=== PATIENT | male | born 1975 | race Caucasian/White ===

== ENCOUNTER 2022-12-12 10:11 | Outpatient (CLI) | payer OTHER, SELFPAY | END 2022-12-12 10:12 | disposition home or self-care (01) | PROVIDERS: PCP Physician Assistant Medical; Visit Provider Family Medicine | DX: Z00.00 Encounter for general adult medical examination without abnormal findings (principal); E78.00 Pure hypercholesterolemia, unspecified; E66.9 Obesity, unspecified; R73.03 Prediabetes; Z11.59 Encounter for screening for other viral diseases; Z13.6 Encounter for screening for cardiovascular disorders | CPT/HCPCS: 80053; 80061; 86803 ==

== ENCOUNTER 2022-12-13 06:18 | Day surgery (SDC) | payer OTHER, SELFPAY ==
[2022-12-13] VITALS (8 sets, daily range): BP systolic 118–132; BP diastolic 78–91; PULSE 65–75; RESP 15–20; TEMP 36.4–36.7; O2SAT 95–98; BMI 45.3
[2022-12-13] MEDS: ETHYL CHLORIDE 1 APPLICATION 1 APPLIC TOPICAL (07:08)
[2022-12-13] MEDS: BUPIVACAINE 0.5% 30 ML INJECTION (07:08)
--- NOTE | 2022-12-13 07:50 | PM.ORPRC ---
Procedure Note Date of procedure: 12/13/22 Procedure: PREOPERATIVE DIAGNOSIS: 1. Right carpal tunnel syndrome POSTOPERATIVE DIAGNOSIS: 1. Right carpal tunnel syndrome PROCEDURE: 1. Right open carpal tunnel release SURGEON: Mike Kiser MD. STRATEGIC ADVISOR: KELSEA Gann ANESTHESIA: Local anesthetic (50:50 mixture of 1% lidocaine with epi and 0.5% marcaine plain) - 10ml total IMPLANTS: None EBL: 2 mL TOURNIQUET: None COMPLICATIONS: None evident INDICATIONS: The patient is a pleasant 47-year-old male who has experienced right hand numbess/tingling affecting the radial 3.5 digits for multiple months. It has progressively gotten worse. Nonoperative management has been tried and failed, and therefore surgery was recommended. DESCRIPTION OF PROCEDURE: Following a thorough discussion of risks, benefits, and alternatives consent was obtained and the operative extremity was marked. The patient was brought to the operating room and placed supine on the operating table. Local anesthesia induction was undertaken in preop holding. No antibiotics were administered as this was planned to be a local case only. Proper time-out was performed identifying proper patient, site, and procedure. The operative extremity was prepped and draped in the appropriate sterile fashion using ChloraPrep. An incision was made in line with the radial border of the ring finger beginning 1 cm distal to the distal wrist crease and progressing for another 2.5cm distal. Caution was taken to stay proximal to Padilla's cardinal line. Sharp incision through the skin, subcutaneous tissue, and palmar fascia was performed. The thenar musculature was bluntly elevated off the transverse carpal ligament. The ligament was directly visualized, and divided sharply with a 15 blade. This was released from its most proximal to the most distal extent. Metzenbaum scissor was also utilized to release the fascia extension proximally. We confirmed complete release of the transverse carpal ligament. Closure was performed with 4-O nylon in interrupted fashion. Soft dressings were applied, and the patient was transferred to the recovery room in stable condition. PLAN: 1. Encourage elevation of the operative extremity. 2. Range of motion of the fingers and hand/wrist as tolerated. 3. Ibuprofen/acetaminophen and/or Percocet as needed for pain control. 4. Follow up with PA visit or nurse visit in 12-16 days for wound check and suture removal.
== END 2022-12-13 08:15 | disposition home or self-care (01) ==
PROVIDERS: PCP Physician Assistant Medical; Visit Provider Orthopaedic Surgery Sports Medicine
PROC: (CPT 64721; principal; 2022-12-13 07:30)
DX: G56.01 Carpal tunnel syndrome, right upper limb (principal)
CPT/HCPCS: 64721; J3490

== ENCOUNTER 2023-01-29 06:18 | Day surgery (SDC) | payer OTHER, SELFPAY ==
[2023-01-29] VITALS (8 sets, daily range): BP systolic 125–132; BP diastolic 76–86; PULSE 66–73; RESP 16; TEMP 36.4–36.6; O2SAT 96–98; BMI 43.6
--- NOTE | 2023-01-29 07:13 | SUR.PREOP ---
SAME DAY SURGERY LOCAL INJECTION SITE VERIFICATION WAS PERFORMED BY SURGEON/PA AND PATIENT PRIOR TO LOCAL ANESTHETIC BEING INJECTED TO OPERATIVE SITE. Left hand
[2023-01-29] MEDS: BUPIVACAINE 0.5% 30 ML INJECTION (07:16)
[2023-01-29] MEDS: ETHYL CHLORIDE 1 APPLICATION 1 APPLIC TOPICAL (07:22)
--- NOTE | 2023-01-29 08:15 | SUR.PHASEII ---
Pt returned from OR and sat in recliner chair. Pt tolerated water, did not care for food. Pt verbalized readiness to be discharged and understanding of discharge instructions.
--- NOTE | 2023-01-29 08:33 | P.ORPRC_ITS ---
Procedure Note Date of procedure: 01/29/23 Procedure: PREOPERATIVE DIAGNOSIS: 1. Left carpal tunnel syndrome 2. Left thumb flexor tenosynovitis - trigger thumb POSTOPERATIVE DIAGNOSIS: 1. Left carpal tunnel syndrome 2. Left thumb flexor tenosynovitis - trigger thumb PROCEDURE: 1. Left open carpal tunnel release 2. Left thumb flexor tendon sheath open release (A1 brandy) SURGEON: Mike Kiser MD. NURSE MIDWIFE/CLINICAL INSTRUCTOR: Sundeep La PA-C ANESTHESIA: Local anesthetic 10ml via 50:50 mixture of 1% Lidocaine with epi and 0.5% marcaine plain EBL: 2ml IMPLANTS: None TOURNIQUET: None COMPLICATIONS: None evident INDICATIONS: The patient is a pleasant 47-year-old male who has experienced left hand numbness and tingling in the radial 3.5 digits as well as left thumb catching/triggering for number of months. It has progressively gotten worse. Given the failure of nonoperative management, and how this affects daily life, surgery was recommended. DESCRIPTION OF PROCEDURE: Following a thorough discussion of risks, benefits, and alternatives consent was obtained and the operative digit(s) was marked. The patient was brought to the operating room and placed supine on the operating table. Local anesthesia induction was undertaken in preop holding. No antibiotics were administered as this was planned to be a local case only. Proper time-out was performed identifying proper patient, site, and procedure. The operative extremity was prepped and draped in the appropriate sterile fashion using ChloraPrep. An incision was made in line with the radial border of the ring finger beginning 1 cm distal to the distal wrist crease and progressing for another 2.5cm distal. Caution was taken to stay proximal to Padilla's cardinal line. Sharp incision through the skin, subcutaneous tissue, and palmar fascia was performed. The thenar musculature was bluntly elevated off the transverse carpal ligament. The ligament was directly visualized, and divided sharply with a 15 blade. This was released from its most proximal to the most distal extent. Metzenbaum scissor was also utilized to release the fascia extension proximally. We confirmed complete release of the transverse carpal ligament. Thereafter, an incision was made on the palmar surface of the hand overlying the MCP joint region of the appropriate digit(s) respecting the palmar creases being cautious not to cross these perpendicularly. Sharp incision through the skin, and blunt dissection through subcutaneous tissue allowing protection of crossing neurologic structures. The A1 brandy was visualized directly. It was incised sharply with a 15 blade. It was released completely from its distal to proximal extent under direct visualization. The tendon was inspected and found to be mildly striated consistent with some friction. Otherwise, it was intact. The tendon was removed out of the wound, and further inspected. The patient was asked to manually flex and extend the digits and showed no further catching. The catching which was visualized after tourniquet inflation, was no longer evident with reproduction of a manual fist and relaxation. Closure was performed with 4-O nylon in interrupted fashion. Soft dressings were applied, and the patient was transferred to the recovery room in stable condition. PLAN: 1. Encourage elevation of the operative extremity. 2. Range of motion and icing of the fingers and hand/wrist as tolerated/needed. 3. Ibuprofen/acetaminophen as needed for pain control. 4. Follow up with PA visit in 12-16 days for wound check and suture removal.
== END 2023-01-29 08:12 | disposition home or self-care (01) ==
PROVIDERS: PCP Family Medicine; Visit Provider Orthopaedic Surgery Sports Medicine
PROC: (CPT 64721; principal; 2023-01-29 07:30)
DX: G56.02 Carpal tunnel syndrome, left upper limb (principal); M65.312 Trigger thumb, left thumb; M65.842 Other synovitis and tenosynovitis, left hand
CPT/HCPCS: 64721; 26055; J3490

== ENCOUNTER 2023-05-01 12:43 | Outpatient (CLI) | payer OTHER, SELFPAY | END 2023-05-01 12:44 | disposition home or self-care (01) | LOC: NFLDREF 05-02 07:37 | PROVIDERS: PCP Family Medicine; Referring Provider Family Medicine; Visit Provider Family Medicine | DX: B35.1 Tinea unguium (principal) | CPT/HCPCS: 80053 ==

== ENCOUNTER 2023-06-26 19:29 | Outpatient (CLI) | payer OTHER, SELFPAY ==
--- NOTE | 2023-07-03 09:03 | W.PM.SLEEP ---
Sleep Study Details Details Interpreting Provider: Sheba Date of Sleep Study: 06/26/23 Sleep Study Details: STUDY TYPE:? Home unattended ? BMI:? 43.8 ORDERING PROVIDER:Klever Galvin INDICATION:? Concerns about sleep apnea ? SLEEP SUMMARY:? 294 minutes monitor RESPIRATORY SUMMARY:? AHI 31.2, supine 29, left lateral 41, right lateral 15.6 Low oxygen 81 7.1% of study oxygen less than 90% Snoring 66.8% PERIODIC LIMB MOVEMENTS OF SLEEP:? Not recorded during home study CARDIAC:? Range 52-89 beats per minute, mean 69.1 beats per minute IMPRESSION:? Severe obstructive sleep apnea RECOMMENDATION: Treatment options include CPAP AutoSet 4-17, dental appliance is possible, weight loss is recommended.
== END 2023-06-26 19:30 | disposition home or self-care (01) ==
LOC: SLEEP 19:30
PROVIDERS: PCP Family Medicine; Visit Provider Family Medicine
DX: G47.33 Obstructive sleep apnea (adult) (pediatric) (principal)
CPT/HCPCS: 80053; 95806

== ENCOUNTER 2023-09-10 08:53 | Outpatient (CLI) | payer OTHER, SELFPAY | END 2023-09-10 08:54 | disposition home or self-care (01) | LOC: NFLDREF 09-11 19:32 | PROVIDERS: PCP Family Medicine; Referring Provider Family Medicine; Visit Provider Family Medicine | DX: B35.1 Tinea unguium (principal); Z79.899 Other long term (current) drug therapy | CPT/HCPCS: 80053 ==

== ENCOUNTER 2024-05-15 07:25 | Outpatient (CLI) | payer OTHER, SELFPAY ==
[2024-05-15 16:35] LABS: Chlamydia DNA Amplified* NOT DETECTED (No Detected); GC DNA Amplified* NOT DETECTED (No Detected)
== END 2024-05-15 07:26 | disposition home or self-care (01) ==
PROVIDERS: PCP Family Medicine; Visit Provider Family Medicine
DX: Z00.00 Encounter for general adult medical examination without abnormal findings (principal); E78.00 Pure hypercholesterolemia, unspecified; R73.03 Prediabetes; Z12.5 Encounter for screening for malignant neoplasm of prostate; G89.29 Other chronic pain; Z11.59 Encounter for screening for other viral diseases; Z13.6 Encounter for screening for cardiovascular disorders; Z13.1 Encounter for screening for diabetes mellitus; M25.562 Pain in left knee; M25.561 Pain in right knee
CPT/HCPCS: 80053; 80061; 86592; 86703; 87491; 87591; G0103

== ENCOUNTER 2025-06-25 13:49 | Outpatient (CLI) | payer OTHER, SELFPAY | END 2025-06-25 13:50 | disposition home or self-care (01) | PROVIDERS: PCP Family Medicine; Visit Provider Physician Assistant Medical | DX: M79.641 Pain in right hand (principal) | CPT/HCPCS: 86200; 86431 ==